=== PATIENT | male | born 2000 | race African-American/Black ===

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

== ENCOUNTER → 2022-01-12 | Emergency (ER) | payer MEDICAID | END | disposition left against medical advice (07) | LOC: ER 16:31 | DX: R20.0 Anesthesia of skin (principal); Z53.21 Procedure and treatment not carried out due to patient leaving prior to being seen by health care provider ==